=== PATIENT | male | born 1960 | race Caucasian/White ===

== ENCOUNTER 2017-04-23 16:30 | Observation (INO) | payer OTHER, SELFPAY ==
[2017-04-23 16:30] VITALS: BP 207/97; PULSE 85; RESP 16; TEMP 36.7; O2SAT 99; BMI 31.6
--- NOTE | 2017-04-23 16:37 | XR_ITS ---
XR chest portable HISTORY: Chest pain ITS.REASON: cp ORDERING PHYSICIAN: Jefry Lucas MD PATIENT AGE: 57 years COMPARISON: 08/10/2008 FINDINGS: The cardiomediastinal silhouette and pulmonary vascularity are within normal limits. The lungs are clear without infiltrates, suspicious nodules, or pleural effusions. No acute bony abnormalities. IMPRESSION: Negative chest, no acute finding
--- NOTE | 2017-04-23 16:39 | HMH.EDGENADL ---
ED Disposition Clinical Impression: Chest pain Disposition: Admitted As Inpatient Condition on Discharge: Good Referrals: Manfred Shetty MD [Primary Care Provider] - Time of Disposition: 18:54 - Critical Care Critical Care Time: No Attestation: On , the high probability of a clinically significant, sudden or life threatening deterioration of the following system(s) required my full and direct attention, intervention and personal management. The time I documented below is in addition to time spent performing reported procedures but includes the following listed in this critical care notation. Medical Decision Making - Medical Records MR Comment: [id number] patient is now chest pain-free plan is admission. Vital Signs: 04/23/17 16:30 04/23/17 17:00 04/23/17 17:30 Temperature 98.0 F Temperature Source Oral Pulse Rate [Right Brachial] 85 89 90 Respiratory Rate 16 16 21 Blood Pressure [Right Arm] 207/97 206/86 163/78 Blood Pressure Mean [Right Arm] 133 126 106 Blood Pressure Source [Right Arm] Automatic Cuff Automatic Cuff Automatic Cuff Blood Pressure Position [Right Arm] Supine Sitting Sitting 02 Sat by Pulse Oximetry 99 98 98 Oxygen Delivery Method Room Air Room Air 04/23/17 18:30 Temperature Temperature Source Pulse Rate [Right Brachial] 90 Respiratory Rate 21 Blood Pressure [Right Arm] 163/78 Blood Pressure Mean [Right Arm] 106 Blood Pressure Source [Right Arm] Automatic Cuff Blood Pressure Position [Right Arm] Sitting 02 Sat by Pulse Oximetry 98 Oxygen Delivery Method - Lab Data Lab Results 04/23/17 16:42: WBC 11.0 H, RBC 5.37, Hgb 16.0, Hct 46.9, MCV 87.2, MCH 29.8, MCHC 34.1, RDW 12.5, Plt Count 255, MPV 8.9, Neut % (Auto) 51.6, Lymph % (Auto) 40.7, [place] % (Auto) 6.5, Eos % (Auto) 0.5, Baso % (Auto) 0.6, Neut # (Auto) 5.7, Lymph # (Auto) 4.5, [place] # (Auto) 0.7, Eos # (Auto) 0.1, Baso # (Auto) 0.1 04/23/17 16:42: Sodium 136, Potassium 3.7, Chloride 99, Carbon Dioxide 27, Anion Gap 13.7, BUN 19 H, Creatinine 1.37 H, Estimated Creat Clear 94, Estimated GFR 54 L, Est GFR ( Amer) 65, Glucose 254 H, Calcium 9.2, Total Bilirubin 0.4, AST 19, ALT 47, Alkaline Phosphatase 86, Troponin I < 0.02, Total Protein 7.9, Albumin 4.0, Globulin 3.9 H, Albumin/Globulin Ratio 1.0 L, Lipase 495 H 04/23/17 16:42: B-Natriuretic Peptide 10 Result diagrams: 04/23/17 16:42 04/23/17 16:42 Orders (Tests/Meds): ED MEDICATIONS Generic Name Dose Route Start Last Admin Trade Name Freq PRN Reason Stop Dose Admin Nitroglycerin 0.4 mg 04/23/17 16:38 04/23/17 16:44 Nitrostat 0.4mg Sl Tablet SL 05/23/17 16:37 0.4 mcg [id number] PRN Administration Chest Pain Discontinued Medications Generic Name Dose Route Start Last Admin Trade Name Freq PRN Reason Stop Dose Admin Aspirin 324 mg 04/23/17 16:38 04/23/17 16:43 Aspirin 81mg Chewable Tablet PO 04/23/17 16:39 324 mg ONCE ONE Administration ORDERS Category Date Time Status ECG Request by /Adolfo Stat Y 04/23/17 16:38 Ordered - ECG Data Tracing #1 ER EKG read by myself shows normal sinus rhythm rate of 90, normal axis, QT prolongation, nonspecific EKG - Oj Inquiry Pt receiving controlled substance: No General Adult HPI - General Chief complaint: Chest Pain Stated complaint: chest pain Mode of Arrival: Ambulatory Limitations: No Limitations Description of Symptoms (Recalled from ER Triage Doc. by RN): Pt c/oepisode of chest pain that started last night and lasted approx. 15 mins and went away, had another episode that started this afternoon. pain has subsided - History of Present Illness HPI narrative: Patient states he had stents placed around 11 years ago he has never had any chest pain since that time he states last night he had onset of left-sided chest pressure no radiation that has been coming and going and he states is associated with some shortness of breath no nausea no sweating he states
--- NOTE | 2017-04-23 16:42 | ED_ITS ---
ED Disposition Clinical Impression: Chest pain Disposition: Admitted As Inpatient Condition on Discharge: Good Referrals: Manfred Shetty MD [Primary Care Provider] - Time of Disposition: 18:54 - Critical Care Critical Care Time: No Attestation: On , the high probability of a clinically significant, sudden or life threatening deterioration of the following system(s) required my full and direct attention, intervention and personal management. The time I documented below is in addition to time spent performing reported procedures but includes the following listed in this critical care notation. Medical Decision Making - Medical Records MR Comment: [id number] patient is now chest pain-free plan is admission. Vital Signs: 04/23/17 16:30 04/23/17 17:00 04/23/17 17:30 Temperature 98.0 F Temperature Source Oral Pulse Rate [Right Brachial] 85 89 90 Respiratory Rate 16 16 21 Blood Pressure [Right Arm] 207/97 206/86 163/78 Blood Pressure Mean [Right Arm] 133 126 106 Blood Pressure Source [Right Arm] Automatic Cuff Automatic Cuff Automatic Cuff Blood Pressure Position [Right Arm] Supine Sitting Sitting 02 Sat by Pulse Oximetry 99 98 98 Oxygen Delivery Method Room Air Room Air 04/23/17 18:30 Temperature Temperature Source Pulse Rate [Right Brachial] 90 Respiratory Rate 21 Blood Pressure [Right Arm] 163/78 Blood Pressure Mean [Right Arm] 106 Blood Pressure Source [Right Arm] Automatic Cuff Blood Pressure Position [Right Arm] Sitting 02 Sat by Pulse Oximetry 98 Oxygen Delivery Method - Lab Data Lab Results 04/23/17 16:42: WBC 11.0 H, RBC 5.37, Hgb 16.0, Hct 46.9, MCV 87.2, MCH 29.8, MCHC 34.1, RDW 12.5, Plt Count 255, MPV 8.9, Neut % (Auto) 51.6, Lymph % (Auto) 40.7, [place] % (Auto) 6.5, Eos % (Auto) 0.5, Baso % (Auto) 0.6, Neut # (Auto) 5.7 , Lymph # (Auto) 4.5, [place] # (Auto) 0.7, Eos # (Auto) 0.1, Baso # (Auto) 0.1 04/23/17 16:42: Sodium 136, Potassium 3.7, Chloride 99, Carbon Dioxide 27, Anion Gap 13.7, BUN 19 H, Creatinine 1.37 H, Estimated Creat Clear 94, Estimated GFR 54 L, Est GFR ( Amer) 65, Glucose 254 H, Calcium 9.2, Total Bilirubin 0.4, AST 19, ALT 47, Alkaline Phosphatase 86, Troponin I < 0.02 , Total Protein 7.9, Albumin 4.0, Globulin 3.9 H, Albumin/Globulin Ratio 1.0 L, Lipase 495 H 04/23/17 16:42: B-Natriuretic Peptide 10 Result diagrams: 04/23/17 16:42 04/23/17 16:42 Orders (Tests/Meds): ED MEDICATIONS Generic Name Dose Route Start Last Admin Trade Name Freq PRN Reason Stop Dose Admin Nitroglycerin 0.4 mg 04/23/17 16:38 04/23/17 16:44 Nitrostat 0.4mg Sl Tablet SL 05/23/17 16:37 0.4 mcg Q5MINP PRN Administration Chest Pain Discontinued Medications Generic Name Dose Route Start Last Admin Trade Name Freq PRN Reason Stop Dose Admin Aspirin 324 mg 04/23/17 16:38 04/23/17 16:43 Aspirin 81mg Chewable Tablet PO 04/23/17 16:39 324 mg ONCE ONE Administration ORDERS Category Date Time Status ECG Request by /Adolfo Stat Y 04/23/17 16:38 Ordered - ECG Data Tracing #1 ER EKG read by myself shows normal sinus rhythm rate of 90, normal axis, QT prolongation, nonspecific EKG - Oj Inquiry Pt receivi
[2017-04-23 17:00] VITALS: BP 206/86; PULSE 89; RESP 16; O2SAT 98
[2017-04-23 17:06] LABS: Alanine Aminotransferase 47 U/L (12-78); Alkaline Phosphatase 86 U/L (46-116); Anion Gap 13.7 mEq/L (5-15); Bilirubin,Total 0.4 mg/dL (0.2-1.0); Blood Urea Nitrogen 19 mg/dL (7-18); Calcium 9.2 mg/dL (8.5-10.1); Carbon Dioxide 27 mmol/L (21.0-32.0); Chloride 99 mmol/L (98-107); Creatinine Clearance Estimated 94 mL/min (0-300); Creatinine,Serum 1.37 mg/dL (0.70-1.30); Estimated Glomerular Filt Rate 54 ml/min (>60); GFR (African American) 65 ML/MIN (>60); Globulin 3.9 gm/dl (1.3-3.2); Glucose 254 mg/dL (74-106); Lipase 495 u/L (73-393); Sodium 136 mmol/L (136-145); Total Protein,Serum 7.9 gm/dL (6.4-8.2); Troponin I < 0.02 ng/ml (0.00-0.06)
[2017-04-23 17:08] LABS: Aspartate Amino Transferase 19 U/L (15-37); Potassium 3.7 mmoL/L (3.5-5.1)
[2017-04-23 17:24] LABS: Basophils # 0.1 K/mm3 (0-0.2); Basophils % 0.6 % (0.1-2.0); Eosinophils # 0.1 K/mm3 (0.0-0.4); Eosinophils % 0.5 % (0.1-12.0); Hematocrit 46.9 % (42.0-52.0); Lymphocytes # 4.5 K/mm3 (0.7-4.5); Lymphocytes % 40.7 K/mm3 (10-50); Mean Corpuscular HGB Conc 34.1 g/dL (31.8-35.4); Mean Corpuscular Hemoglobin 29.8 pg (27.0-31.2); Mean Corpuscular Volume 87.2 fl (80-94); Mean Platelet Volume 8.9 fl (7.4-10.4); Monocytes # 0.7 K/mm3 (0.1-1.0); Monocytes % 6.5 % (1.7-9.3); Neutrophils # 5.7 K/mm3 (1.8-7.8); Neutrophils % 51.6 % (37.0-80.0); Platelet Count 255 K/mm3 (142-424); Red Blood Count 5.37 M/mm3 (4.60-6.20); Red Cell Distribution Width 12.5 % (11.5-17.5)
[2017-04-23 17:30] VITALS: BP 163/78; PULSE 90; RESP 21; O2SAT 98
[2017-04-23 18:30] VITALS: BP 163/78; PULSE 90; RESP 21; O2SAT 98
[2017-04-23 19:30] VITALS: BP 161/84; PULSE 83; RESP 16; O2SAT 97
--- NOTE | 2017-04-23 19:31 | PC.NURSE ---
BLOOD DRAWN FOR REPEAT TROPONIN
[2017-04-23 19:53] LABS: Troponin I 0.02 ng/ml (0.00-0.06)
[2017-04-23 20:00] VITALS: O2SAT 97; BMI 33.0
[2017-04-23 22:57] LABS: Troponin I 0.08 ng/ml (0.00-0.06)
[2017-04-24] VITALS (21 sets, daily range): BP systolic 120–182; BP diastolic 58–101; PULSE 68–86; RESP 16–20; TEMP 36.6–36.9; O2SAT 95–98
--- NOTE | 2017-04-24 03:15 | PC.NURSE ---
PATIENT ADMITTED THROUGH ED FOR CHEST PAIN, NO FURTHER C/O CHEST PAIN THIS SHIFT. DURING ADMISSION PATIENT STATED HE IS ALLERGIC TO ATENOLOL INSTEAD OF PROPRANOLOL; IT WAS CORRECTED IN HIS CHART. PATIENT MADE IT CLEAR THAT HE DID NOT WANT TO STAY THE NIGHT AND STATED HE WOULD BE GOING HOME IN THE MORNING.. IV PLACEMENT IN LAC IS PATENT BUT PATIENT CONTINUED TO BEND ELBOW WHILE SLEEPING MAKING THE ALARM GO OFF. EXPLAINED TO PATIENT THAT IV FLUIDS WERE ORDERED AND HE STATED HE DID NOT WANT THAT ALARM KEEPING HIM UP ALL NIGHT AND THAT HE WANTED IT UNHOOKED . PATIENT HAS BEEN SLEEPING SO FAR THIS SHIFT WITH NO FURTHER C/O PAIN OR DISCOMFORT. VSS. NO ACUTE CHANGES. CALL LIGHT WITHIN REACH. WILL CONTINUE TO MONITOR.
[2017-04-24 05:29] LABS: Basophils # 0.1 K/mm3 (0-0.2); Basophils % 0.7 % (0.1-2.0); Eosinophils # 0.1 K/mm3 (0.0-0.4); Eosinophils % 0.9 % (0.1-12.0); Hematocrit 45.2 % (42.0-52.0); Lymphocytes # 3.2 K/mm3 (0.7-4.5); Lymphocytes % 36.9 K/mm3 (10-50); Mean Corpuscular HGB Conc 33.2 g/dL (31.8-35.4); Mean Corpuscular Hemoglobin 29.1 pg (27.0-31.2); Mean Corpuscular Volume 87.4 fl (80-94); Mean Platelet Volume 8.7 fl (7.4-10.4); Monocytes # 0.6 K/mm3 (0.1-1.0); Monocytes % 7.2 % (1.7-9.3); Neutrophils # 4.6 K/mm3 (1.8-7.8); Neutrophils % 54.3 % (37.0-80.0); Platelet Count 208 K/mm3 (142-424); Red Blood Count 5.17 M/mm3 (4.60-6.20); Red Cell Distribution Width 12.5 % (11.5-17.5); White Blood Count 8.5 K/mm3 (4.8-10.8)
[2017-04-24 05:37] LABS: Anion Gap 10.2 mEq/L (5-15); Blood Urea Nitrogen 18 mg/dL (7-18); Carbon Dioxide 28 mmol/L (21.0-32.0); Chloride 104 mmol/L (98-107); Creatinine Clearance Estimated 120 mL/min (0-300); Creatinine,Serum 1.12 mg/dL (0.70-1.30); Estimated Glomerular Filt Rate 68 ml/min (>60); GFR (African American) 82 ML/MIN (>60); Potassium 4.2 mmoL/L (3.5-5.1); Sodium 138 mmol/L (136-145)
[2017-04-24 05:44] LABS: Glucose 201 mg/dL (74-106)
[2017-04-24 08:41] LABS: Troponin I 0.26 ng/ml (0.00-0.06)
--- NOTE | 2017-04-24 09:16 | HMH.HP ---
*Admission Date: 04/23/17 *Chief complaint: Chest Pain *History of present illness: 57-year-old white male, diabetic, with history of coronary disease with stents placed about 11 years ago. Since that time he has been lost to cardiology follow-up and has been on diabetic medications but no statin or beta blockade or JOSY inhibitor. He came to the emergency department yesterday with chief complaints of heaviness in his chest, some dyspnea with exertion and was admitted overnight for observation. This morning he has no chest pain and feels good. No palpitations or worsening edema. [facility] History I have reviewed the patient's past medical history: Yes Medical History: Reports:: Atherosclerotic Heart Disease, Diabetes Mellitus Type 1, Diabetes Mellitus Type 2 Denies:: Cancer, MRSA Other Surgeries: Yes: Coronary Stent, EGD (check for ulcer) Amputation: No Fractures: No - *Social History Educational Level: Completed High School Smoking Status: Former smoker Tobacco Type: cigarettes Alcohol Intake: never Occupational Status: employed - Psychiatric History Expresses thoughts of harming self/others: None Suicide Plan Description: No Plan *Family Hx:: Heart Attack, Hyperlipidemia, Hypertension Review of Systems - Review of Systems Review of systems:: unable to obtain, other, pertinent systems reviewed and negative unless documented below Meds Home Medications Medication Instructions Recorded Confirmed Type Dulaglutide [Trulicity] 0.75 unit SQ WEEKLY 04/23/17 04/23/17 History Sertraline HCl [Zoloft] 50 mg PO BID 04/23/17 04/23/17 History Allergies Allergy/AdvReac Type Severity Reaction Status Date / Time atenolol Allergy Intermediate Rash Verified 04/23/17 20:30 Exam Vital signs and Labs for Last 24 Hours: Temp Pulse Resp BP Pulse Ox 98.4 F 69 18 142/70 98 04/24/17 07:58 04/24/17 07:58 04/24/17 07:58 04/24/17 07:58 04/24/17 07:58 Laboratory Results - last 24 hr 04/23/17 22:30: Troponin I 0.08 H 04/24/17 05:15: WBC 8.5, RBC 5.17, Hgb 15.0, Hct 45.2, MCV 87.4, MCH 29.1, MCHC 33.2, RDW 12.5, Plt Count 208, MPV 8.7, Neut % (Auto) 54.3, Lymph % (Auto) 36.9, [place] % (Auto) 7.2, Eos % (Auto) 0.9, Baso % (Auto) 0.7, Neut # (Auto) 4.6, Lymph # (Auto) 3.2, [place] # (Auto) 0.6, Eos # (Auto) 0.1, Baso # (Auto) 0.1 04/24/17 05:15: Sodium 138, Potassium 4.2, Chloride 104, Carbon Dioxide 28, Anion Gap 10.2, BUN 18, Creatinine 1.12, Estimated Creat Clear 120, Estimated GFR 68, Est GFR ( Amer) 82 D, Glucose 201 H D 04/24/17 05:15: Troponin I 0.26 H I & O for Last 24 hours: Intake & Output 04/21/17 04/22/17 04/23/17 04/24/17 11:59 11:59 11:59 11:59 Intake Total Balance Weight 250 lb 8 oz Narrative: Patient is pleasant and talkative, lungs are clear, heart rate regular. Abdomen soft, no edema. Neurologically intact. No JVD. Good distal pulses. H&P: Result - Labs Labs: Short CBC 04/24/17 Range/Units 05:15 WBC 8.5 (4.8-10.8) K/mm3 Hgb 15.0 (14.1-18.0) g/dL Hct 45.2 (42.0-52.0) % Plt Count 208 (142-424) K/mm3 BMP 04/24/17 05:15 Sodium 138 Potassium 4.2 Chloride 104 Carbon Dioxide 28 BUN 18 Creatinine 1.12 Glucose 201 H D Cardiac Enzymes 04/23/17 04/24/17 Range/Units 22:30 05:15 Troponin I 0.08 H 0.26 H (0.00-0.06) ng/ml Assessment and Plan (1) Non-STEMI (non-ST elevated myocardial infarction) Current visit: Yes Status: Acute Category: Medical Code(s): I21.4 - Non-ST elevation (NSTEMI) myocardial infarction (2) Diabetes mellitus type 2, noninsulin dependent Current visit: Yes Status: Acute Category: Medical Code(s): E11.9 - Type 2 diabetes mellitus without complications - Assessment and plan all Dx Assessment and Plan for all problems:: Patient is clearly ruled in this morning for non-STEMI. Cardiology consultation with Dr. Giron for catheterization.
--- NOTE | 2017-04-24 09:19 | P.HP_ITS ---
*Admission Date: 04/23/17 *Chief complaint: Chest Pain *History of present illness: 57-year-old white male, diabetic, with history of coronary disease with stents placed about 11 years ago. Since that time he has been lost to cardiology follow-up and has been on diabetic medications but no statin or beta blockade or JOSY inhibitor. He came to the emergency department yesterday with chief complaints of heaviness in his chest, some dyspnea with exertion and was admitted overnight for observation. This morning he has no chest pain and feels good. No palpitations or worsening edema. [facility] History I have reviewed the patient's past medical history: Yes Medical History: Reports:: Atherosclerotic Heart Disease, Diabetes Mellitus Type 1, Diabetes Mellitus Type 2 Denies:: Cancer, MRSA Other Surgeries: Yes: Coronary Stent, EGD (check for ulcer) Amputation: No Fractures: No - *Social History Educational Level: Completed High School Smoking Status: Former smoker Tobacco Type: cigarettes Alcohol Intake: never Occupational Status: employed - Psychiatric History Expresses thoughts of harming self/others: None Suicide Plan Description: No Plan *Family Hx:: Heart Attack, Hyperlipidemia, Hypertension Review of Systems - Review of Systems Review of systems:: unable to obtain, other, pertinent systems reviewed and negative unless documented below Meds Home Medications Medication Instructions Recorded Confirmed Type Dulaglutide [Trulicity] 0.75 unit SQ WEEKLY 04/23/17 04/23/17 History Sertraline HCl [Zoloft] 50 mg PO BID 04/23/17 04/23/17 History Allergies Allergy/AdvReac Type Severity Reaction Status Date / Time atenolol Allergy Intermediate Rash Verified 04/23/17 20:30 Exam Vital signs and Labs for Last 24 Hours: Temp Pulse Resp BP Pulse Ox 98.4 F 69 18 142/70 98 04/24/17 07:58 04/24/17 07:58 04/24/17 07:58 04/24/17 07:58 04/24/17 07:58 Laboratory Results - last 24 hr 04/23/17 22:30: Troponin I 0.08 H 04/24/17 05:15: WBC 8.5, RBC 5.17, Hgb 15.0, Hct 45.2, MCV 87.4, MCH 29.1, MCHC 33.2, RDW 12.5, Plt Count 208, MPV 8.7, Neut % (Auto) 54.3, Lymph % (Auto) 36.9 , [place] % (Auto) 7.2, Eos % (Auto) 0.9, Baso % (Auto) 0.7, Neut # (Auto) 4.6, Lymph # (Auto) 3.2, [place] # (Auto) 0.6, Eos # (Auto) 0.1, Baso # (Auto) 0.1 04/24/17 05:15: Sodium 138, Potassium 4.2, Chloride 104, Carbon Dioxide 28, Anion Gap 10.2, BUN 18, Creatinine 1.12, Estimated Creat Clear 120, Estimated GFR 68, Est GFR ( Amer) 82 D, Glucose 201 H D 04/24/17 05:15: Troponin I 0.26 H I & O for Last 24 hours: Intake & Output 04/21/17 04/22/17 04/23/17 04/24/17 11:59 11:59 11:59 11:59 Intake Total Balance Weight 250 lb 8 oz Narrative: Patient is pleasant and talkative, lungs are clear, heart rate regular. Abdomen soft, no edema. Neurologically intact. No JVD. Good distal pulses. H&P: Result - Labs Labs: Short CBC 04/24/17 Range/Units 05:15 WBC 8.5 (4.8-10.8) K/mm3 Hgb 15.0 (14.1-18.0) g/dL Hct 45.2 (42.0-52.0) % Plt Count 208 (142-424) K/mm3 BMP 04/24/17 05:15 Sodium 138 Potassium 4.2 Chloride 104 Carbon Dioxide 28 BUN 18 Creatinine 1.12 Glucose
--- NOTE | 2017-04-24 10:06 | IR_ITS ---
CARDIAC CATHETERIZATION DATE OF CATHETERIZATION:04/24/2017 12:31 PM PROCEDURES: 1. Left heart catheterization 2. Left ventriculogram 3. Selective coronary angiogram 4. Drug-eluting stent deployment to the mid LAD INDICATION FOR TEST: 1. Acute non-ST elevation myocardial infarction 2. Coronary artery disease Informed consent was obtained prior to the procedure. COMPLICATIONS: None ESTIMATED BLOOD LOSS: Less than 10 ml. TECHNIQUE: One percent lidocaine used to anesthetize the right anterior aspect of the wrist. The right radial artery was accessed via the Seldinger technique. A 6 [place] sheath was placed in the right radial artery. 2.5 mg of verapamil, 800 mcg of nitroglycerin and 5000 U Heparin were given through the arterial sheath. The trap catheter was also used to perform left heart catheterization left ventriculogram and selective coronary angiogram. At the end of the diagnostic angiogram and additional 8000 units of heparin was administered intravenously producing an ACT of 383 seconds. Several catheters were required but eventually and JL 0.75 guide catheter was used intubate the left main artery. A choice PT wire was placed into the distal LAD and a 2.5 x 22 mm resolute [place] stent was deployed at 22 scout reducing the stenosis critical 99% stenosis to 60%. A 2.75 x 6 mm noncompliant balloon was taken at 24 scout to reduce the stenosis. An additional 3 mm balloon and then 3.25 mm balloon and then ultimately 2 different 3.5 mm noncompliant balloons were required to eventually reduce the stenosis to 0%. A 3.5 x 6 mm noncompliant balloon finding the reduced the stenosis to 0% once hitting 24 scout of pressure TOVA II flow was present at the beginning of the procedure and TOVA-3 flow at the end of the procedure. After achieving excellent angiographic results the closing ACT was 280 seconds. Patient received Brilinta 180 mg on the table along with aspirin. At the end of the procedure the sheath was removed good hemostasis was achieved using TR banding patient was transferred to the postop holding area in stable condition ANGIOGRAPHIC RESULTS: 1. The left main artery normal 2. The left anterior descending artery has proximal 10% stenoses followed by a stent in the mid portion of the LAD which has critical 99% in-stent restenosis. The remaining LAD has mild luminal irregularities. The first diagonal artery is a large vessel and has a stent in the proximal segment which is widely patent with 20-30% concentric in-stent restenosis 3. The circumflex artery is a nondominant vessel and has proximal 20-30% stenoses and distal 20% stenoses in the obtuse marginal arteries 4. The right coronary artery is a dominant vessel and has a stent proximally with mild in-stent restenosis. The mid right coronary artery has 30% stenoses while the distal vessel also has 30% stenoses 5. The GUILLEN ventriculogram reveals normal ejection fraction 65% 6. The left ventricular end-diastolic pressure 10 mmHg IMPRESSION: 1. Critical in-stent restenosis in the mid LAD producing slow TOVA II flow 2. Successful stenting and ballooning of a complex critical stenosis eventually being reduced to 0% with multiple high pressure balloons resulting and TOVA-3 flow 3. Normal ejection fraction 4. Normal left ventricular end-diastolic pressure PLAN: 1. Brilinta 90 mg twice a day combined with aspirin 81 mg daily for one year 2. LDL less than 55 3. Cardiac rehabilitation 4. Avoidance of tobacco products 5. Aggressive control of hypertension 6. Aggressive control of diabetes
--- NOTE | 2017-04-24 10:59 | SUR.PREOP ---
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
[2017-04-24 13:42] LABS: CATHL Activated Clotting Time 280 SEC (74-125)
[2017-04-24 13:42] LABS: CATHL Activated Clotting Time 383 SEC (74-125)
--- NOTE | 2017-04-24 16:25 | HMH.DCSUM ---
General - General Admission date: 04/23/17 Discharge date: 04/24/17 HPI HPI: 57-year-old white male, diabetic, with history of coronary disease with stents placed about 11 years ago. Since that time he has been lost to cardiology follow-up and has been on diabetic medications but no statin or beta blockade or JOSY inhibitor. He came to the emergency department yesterday with chief complaints of heaviness in his chest, some dyspnea with exertion and was admitted overnight for observation. This morning he has no chest pain and feels good. No palpitations or worsening edema. Objective Vital signs: Temp Pulse Resp BP Pulse Ox 98.4 F 85 18 182/101 98 04/24/17 07:58 04/24/17 15:30 04/24/17 15:30 04/24/17 15:30 04/24/17 15:30 no acute distress - *Routine HEENT Exam Eye: Present: EOMI, PERRL - *Routine Neck Exam Absent: JVD - *Routine Respiratory Exam Present: CTA bilaterally - *Routine Cardiovascular Exam Present: RRR, Normal S1, Normal S2. Absent: murmur - *Routine Abdominal Exam Present: soft - *Routine Neurological Exam Present: alert, oriented X3, CN II-XII intact Hospital Course Hospital Course: Patient was admitted to hospital, serial cardiac enzymes showed elevation and I ordered another repeat this morning which revealed clear elevation into the acute coronary syndrome/non-STEMI range. Cardiology was consulted. Patient was subjected to left heart cath which revealed a 90% LAD lesion that was certainly critical. Stenting was deployed with excellent results radiographically. The patient feels good, he is completed his post stent protocol and he will be discharged tonight with Brilinta, JOSY inhibitor, calcium channel blockade and atorvastatin. Close follow-up in my office in 2 days. Results Labs on day of discharge: Labs from last 24 hours 04/24/17 04/24/17 04/24/17 12:02 11:26 05:15 WBC RBC Hgb Hct MCV MCH MCHC RDW Plt Count MPV Neut % (Auto) Lymph % (Auto) [place] % (Auto) Eos % (Auto) Baso % (Auto) Neut # (Auto) Lymph # (Auto) [place] # (Auto) Eos # (Auto) Baso # (Auto) Activated Clotting Time 280 H* D 383 H* Sodium Potassium Chloride Carbon Dioxide Anion Gap BUN Creatinine Estimated Creat Clear Estimated GFR Est GFR ( Amer) Glucose Troponin I 0.26 H 04/24/17 04/24/17 04/23/17 05:15 05:15 22:30 WBC 8.5 RBC 5.17 Hgb 15.0 Hct 45.2 MCV 87.4 MCH 29.1 MCHC 33.2 RDW 12.5 Plt Count 208 MPV 8.7 Neut % (Auto) 54.3 Lymph % (Auto) 36.9 [place] % (Auto) 7.2 Eos % (Auto) 0.9 Baso % (Auto) 0.7 Neut # (Auto) 4.6 Lymph # (Auto) 3.2 [place] # (Auto) 0.6 Eos # (Auto) 0.1 Baso # (Auto) 0.1 Activated Clotting Time Sodium 138 Potassium 4.2 Chloride 104 Carbon Dioxide 28 Anion Gap 10.2 BUN 18 Creatinine 1.12 Estimated Creat Clear 120 Estimated GFR 68 Est GFR ( Amer) 82 D Glucose 201 H D Troponin I 0.08 H DS: Diagnosis - Discharge Diagnosis (1) Non-STEMI (non-ST elevated myocardial infarction) Status: Acute (2) Diabetes mellitus type 2, noninsulin dependent Status: Acute Meds Home Medications Medication Instructions Recorded Confirmed Type Dulaglutide [Trulicity] 0.75 unit SQ WEEKLY 04/23/17 04/23/17 History Sertraline HCl [Zoloft] 50 mg PO BID 04/23/17 04/23/17 History Allergies Allergy/AdvReac Type Severity Reaction Status Date / Time atenolol Allergy Intermediate Rash Verified 04/23/17 20:30 Discharge Plan - Patient Discharge Instructions ACTIVITY: No heavy lifting DIET: continue same diet - Follow up Plan Follow up with: Tammy Brunson APRN [Nurse Practitioner] - 04/26/17 9:00 am Home Medications: Home Medications Medication Instructions Recorded Confirmed Type Dulaglutide
--- NOTE | 2017-04-24 16:28 | P.DS_ITS ---
General - General Admission date: 04/23/17 Discharge date: 04/24/17 HPI HPI: 57-year-old white male, diabetic, with history of coronary disease with stents placed about 11 years ago. Since that time he has been lost to cardiology follow-up and has been on diabetic medications but no statin or beta blockade or JOSY inhibitor. He came to the emergency department yesterday with chief complaints of heaviness in his chest, some dyspnea with exertion and was admitted overnight for observation. This morning he has no chest pain and feels good. No palpitations or worsening edema. Objective Vital signs: Temp Pulse Resp BP Pulse Ox 98.4 F 85 18 182/101 98 04/24/17 07:58 04/24/17 15:30 04/24/17 15:30 04/24/17 15:30 04/24/17 15:30 no acute distress - *Routine HEENT Exam Eye: Present: EOMI, PERRL - *Routine Neck Exam Absent: JVD - *Routine Respiratory Exam Present: CTA bilaterally - *Routine Cardiovascular Exam Present: RRR, Normal S1, Normal S2. Absent: murmur - *Routine Abdominal Exam Present: soft - *Routine Neurological Exam Present: alert, oriented X3, CN II-XII intact Hospital Course Hospital Course: Patient was admitted to hospital, serial cardiac enzymes showed elevation and I ordered another repeat this morning which revealed clear elevation into the acute coronary syndrome/non-STEMI range. Cardiology was consulted. Patient was subjected to left heart cath which revealed a 90% LAD lesion that was certainly critical. Stenting was deployed with excellent results radiographically. The patient feels good, he is completed his post stent protocol and he will be discharged tonight with Brilinta, JOSY inhibitor, calcium channel blockade and atorvastatin. Close follow-up in my office in 2 days. Results Labs on day of discharge: Labs from last 24 hours 04/24/17 04/24/17 04/24/17 12:02 11:26 05:15 WBC RBC Hgb Hct MCV MCH MCHC RDW Plt Count MPV Neut % (Auto) Lymph % (Auto) Valley % (Auto) Eos % (Auto) Baso % (Auto) Neut # (Auto) Lymph # (Auto) Valley # (Auto) Eos # (Auto) Baso # (Auto) Activated Clotting Time 280 H* D 383 H* Sodium Potassium Chloride Carbon Dioxide Anion Gap BUN Creatinine Estimated Creat Clear Estimated GFR Est GFR ( Amer) Glucose Troponin I 0.26 H 04/24/17 04/24/17 04/23/17 05:15 05:15 22:30 WBC 8.5 RBC 5.17 Hgb 15.0 Hct 45.2 MCV 87.4 MCH 29.1 MCHC 33.2 RDW 12.5 Plt Count 208 MPV 8.7 Neut % (Auto) 54.3 Lymph % (Auto) 36.9 Valley % (Auto) 7.2 Eos % (Auto) 0.9 Baso % (Auto) 0.7 Neut # (Auto) 4.6 Lymph # (Auto) 3.2 Valley # (Auto) 0.6 Eos # (Auto) 0.1 Baso # (Auto) 0.1 Activated Clotting Time Sodium 138 Potassium 4.2 Chloride 104 Carbon Dioxide 28 Anion Gap
--- NOTE | 2017-04-24 17:48 | PC.NURSE ---
PATIENT RETURNED FROM [facility]OR[facility]NA[facility] AT 1400 1430 REMOVED 2 ML AIR FROM TRACELET WITH 10 REMAINING 1500 REMOVED 2 ML AIR FROM TRACELET WITH 8 ML REMAINING 1530 REMOVED 2 ML AIR FROM TRACELET WITH 6 REMAINING 1600 REMOVED 2 ML AIR FROM TRACELET WITH 4 REMAINING 1630 REMOVED 2 ML AIR FROM TRACELET WITH 2 REMAINING 1715 REMOVED 2 ML AIR FROM TRACELET WITH 0 REMAINING 1745 REMOVED TRACELET AND REPLACED WITH 2X2 AND TEGADERM
--- NOTE | 2017-04-24 18:34 | PC.NURSE ---
Discharge instructions given to pt and education on post cath care. Right wrist site has 2x2 in place. no swelling or bleeding noted at site.
== END 2017-04-24 18:30 | disposition home or self-care (01) ==
LOC: ER 18:55 → 2ND 04-24 07:11
PROVIDERS: Internal Medicine; Admitting Provider Emergency Medicine; Emergency Provider Emergency Medicine; PCP Internal Medicine Adolescent Medicine; Visit Provider Internal Medicine Adolescent Medicine
DX: I25.10 Atherosclerotic heart disease of native coronary artery without angina pectoris (principal); Z95.5 Presence of coronary angioplasty implant and graft; E11.9 Type 2 diabetes mellitus without complications; I21.4 Non-ST elevation (NSTEMI) myocardial infarction
CPT/HCPCS: 36415; 71045; 80048; 80053; 83690; 83880; 84484; 85025; 85347; 92928; 93005; 93041; 93458; 99152; 99153; 99284; C1725; C1769; C1876; C9600; G0378; J1644; Q9967

== ENCOUNTER → 2017-07-21 07:30 | Outpatient (CLI) | payer SELFPAY ==
[2017-07-21 11:16] LABS: Alanine Aminotransferase 49 U/L (12-78); Albumin/Globulin Ratio 1.1 (1.1-1.8); Alkaline Phosphatase 88 U/L (46-116); Anion Gap 17.5 mEq/L (5-15); Aspartate Amino Transferase 21 U/L (15-37); Bilirubin,Total 0.5 mg/dL (0.2-1.0); Blood Urea Nitrogen 23 mg/dL (7-18); Calcium 9.4 mg/dL (8.5-10.1); Carbon Dioxide 23 mmol/L (21.0-32.0); Chloride 102 mmol/L (98-107); Chol/HDL Ratio 3.1 (1-3.5); Cholesterol 121 mg/dL (140-200); Creatinine,Serum 1.01 mg/dL (0.70-1.30); Estimated Glomerular Filt Rate 77 ml/min (>60); GFR (African American) 93 ML/MIN (>60); Globulin 3.7 gm/dl (1.3-3.2); Glucose 266 mg/dL (74-106); HDL Cholesterol 39 mg/dL (27-67); LDL Cholesterol 58 mg/dL (0-130); Potassium 4.5 mmoL/L (3.5-5.1); Sodium 138 mmol/L (136-145); Total Protein,Serum 7.7 gm/dL (6.4-8.2); Triglycerides 119 mg/dL (30-200); VLDL Cholesterol 24 mg/dL (0-40)
[2017-07-21 15:38] LABS: Hemoglobin A1C 9.2 % (0.0-7.0)
[2017-07-23 12:54] LABS: Microalbumin, Urine 15.4 ug/mL (Not Estab.)
== END ==
PROVIDERS: Visit Provider Nurse Practitioner Family
DX: E78.2 Mixed hyperlipidemia (principal); E11.9 Type 2 diabetes mellitus without complications; I10 Essential (primary) hypertension
CPT/HCPCS: 36415; 80053; 80061; 82043; 83036

== ENCOUNTER → 2018-11-26 10:06 | Outpatient (CLI) | payer OTHER, SELFPAY ==
[2018-11-26 10:41] LABS: Hemoglobin A1C 9.3 % (0.0-7.0)
[2018-11-26 12:39] LABS: Alanine Aminotransferase 43 U/L (12-78); Albumin Level 4.2 gm/dL (3.4-5.0); Albumin/Globulin Ratio 1.2 (1.1-1.8); Alkaline Phosphatase 119 U/L (46-116); Aspartate Amino Transferase 19 U/L (15-37); Bilirubin,Total 0.6 mg/dL (0.2-1.0); Blood Urea Nitrogen 22 mg/dL (7-18); Calcium 9.4 mg/dL (8.5-10.1); Carbon Dioxide 26 mmol/L (21.0-32.0); Chol/HDL Ratio 3.1 (1-3.5); Cholesterol 114 mg/dL (140-200); Creatinine,Serum 1.09 mg/dL (0.70-1.30); Estimated Glomerular Filt Rate 70 ml/min (>60); GFR (African American) 85 ML/MIN (>60); Globulin 3.6 gm/dl (1.3-3.2); Glucose 326 mg/dL (74-106); HDL Cholesterol 37 mg/dL (27-67); LDL Cholesterol 49 mg/dL (0-130); Total Protein,Serum 7.8 gm/dL (6.4-8.2); Triglycerides 138 mg/dL (30-200); VLDL Cholesterol 28 mg/dL (0-40)
[2018-11-26 12:56] LABS: Anion Gap 15.5 mEq/L (5-15); Chloride 99 mmol/L (98-107); Potassium 4.5 mmoL/L (3.5-5.1); Sodium 136 mmol/L (136-145)
[2018-11-30 05:08] LABS: Creatinine, Urine 34.2 mg/dL (Not Estab.); Microalbumin, Urine 15.3 ug/mL (Not Estab.)
== END ==
PROVIDERS: Visit Provider Nurse Practitioner Family
DX: E11.65 Type 2 diabetes mellitus with hyperglycemia (principal); E78.2 Mixed hyperlipidemia; I10 Essential (primary) hypertension; Z79.84 Long term (current) use of oral hypoglycemic drugs
CPT/HCPCS: 36415; 80053; 80061; 82043; 82570; 83036

== ENCOUNTER → 2019-01-03 06:54 | Outpatient (CLI) | payer OTHER, SELFPAY ==
--- NOTE | 2019-01-03 | CA_ITS ---
APPROVED REPORT Exam: Exercise Treadmill Technologist: Janice Lorenzana Ht: 6 ft 0 in Wt: 234 lbs BSA: 2.28 m2 HR: 60 bpm BP: 143/72 mmHg Indications: Shortness of Breath Medical History Medications: Amlodipine,,,,, Aspirin,,,,, Metformin,,,,, Atorvastatin,,,,, Carvedilol,,,,, Farxiga,,,,, BRILINTA,,,,, Sertraline,,,,, Stress Test Details Test: Ismael HR Resting HR: 65 bpm Max Heart Rate (APMHR): 164 bpm Max HR Achieved: 142 bpm Target HR (85% APMHR): 139 bpm % of APMHR: 86 Recovery HR: 81 bpm BP Resting BP: 143.0/72.0 mmHg Max BP: 180.0/68.0 mmHg Recovery BP: 137.0/65.0 mmHg ECG Clinical Exercise duration: 08:35 min Highest Stage Achieved: Exercise capacity: 10.1 METs Stress ECG Conclusion Resting ECG: Normal sinus rhythm, NS ST abnormalities inferiorly. Patient exercised 8:35 on Ismael Protocol. Test stopped due to shortness of air, leg fatigue. Symptoms: No chest pain Arrhythmias/Ectopy: Rare PVC ST-T Changes: 2mm downsloping ST depression inferiorly and 1.5mm horizontal ST depression laterally. Conclusion: EKG changes positive for ischemia. Myoview images reported separately. Test Summary REST . . . . . . . Sitting REST . . . . . . . Standing REST 11:02 0.0 0.0 65 . 143/ 72 . . Stage 1 01:00 10.0 1.7 83 . . . . Stage 1 02:00 10.0 1.7 89 . . . . Stage 1 03:00 10.0 1.7 92 . 152/ 70 . . Stage 2 01:00 12.0 2.5 102 . . . . Stage 2 02:00 12.0 2.5 102 . . . . Stage 2 03:00 12.0 2.5 112 . 180/ 68 . . Stage 3 01:00 14.0 3.4 130 . . . . Stage 3 . . . . . . . Myoview Injected Stage 3 02:00 14.0 3.4 138 . . . . Stage 3 02:35 14.0 3.4 142 . . . Stop exercise at 08:35 RECOVERY 01:00 0.0 0.0 118 . 174/ 60 . . RECOVERY 02:00 0.0 0.0 102 . 174/ 60 . . RECOVERY 03:00 0.0 0.0 88 . 174/ 60 . . RECOVERY 04:00 0.0 0.0 90 . 168/ 63 . . RECOVERY 05:00 0.0 0.0 84 . 152/ 70 . . RECOVERY 06:00 0.0 0.0 83 . 152/ 70 . . RECOVERY 07:00 0.0 0.0 80 . 137/ 65 . . RECOVERY 07:19 0.0 0.0 81 . 137/ 65 . . Electronically signed by : Miguel Lepe, 01/03/2019 20:37:14
--- NOTE | 2019-01-03 06:57 | NM_ITS ---
APPROVED REPORT Exam: Nuclear Stress Test Indication: chest pain Patient Location: Outpatient Stress Tech: Janice Lorenzana [place] Tech:Wendie Lopez SANJEEV RT(R)(N) Ht: 6 ft 0 in Wt: 234 lbs HR: 60 bpm BP: 143/72 mmHg BSA: 2.28 m2 History: chest pain Procedure: Patient exercised on Ismael protocol 8:35 minutes and sec, resting heart rate 60 bpm, resting blood pressure 143/72 mmHg, with exercise maximum heart rate achived was 142 bpm which is 87 % of the maximum predicted heart rate and blood pressure was 180/68 mmHg. Patient denied any complaint of chest pain. Patient has Good exercise capacity, achieved 10.1 METs of workload on treadmill, the blood pressure response to exercise was Adequate. Electrocardiogram Resting electro cardiogram shows sinus rhythm nonspecific ST-T changes, with exercise there is almost [address] segment depression noted from the baseline EKG. The EKG portion of the exercise Myoview is positive for ischemia. Cardiac Stress and Resting SPECT Images: Cardiac Stress and Resting SPECT images were obtained using technetium 99m Myoview 32.9 mCi stress and 10.28 mCi at rest. Gated SPECT with analysis of segmental wall motion and calculation of the ejection fraction also done. Cardiac stress and resting SPECT images show uniform myocardial activity without segmental perfusion abnormality, computer derived ejection fraction is over 65% with no regional wall motion abnormality, right ventricle is normal size and contractility. Conclusion: 1. The EKG portion of the exercise Myoview is positive for ischemia, patient has good exercise capacity achieved 10.1 mets of workload on treadmill, the blood pressure response to exercise was adequate, there was no exercise-induced chest discomfort. 2. No scintigraphic evidence of reversible ischemia seen at this level of exercise, computer derived ejection fraction is over 65% with no regional wall motion abnormality, right ventricle is normal size and contractility. Electronically signed by : Miguel Lepe, 01/03/2019 20:40:27
--- NOTE | 2019-01-03 10:20 | HMH.ITSHM ---
Current Home Medications as stated by this patient Alex Abbott JR or customer assistance representative. [] carvedilol farxiga amlodipine brilinta atorvastatin metformin asa sertraline
== END ==
PROVIDERS: PCP Internal Medicine Adolescent Medicine; Visit Provider Nurse Practitioner Family
DX: E78.5 Hyperlipidemia, unspecified (principal); I10 Essential (primary) hypertension; I20.9 Angina pectoris, unspecified; I25.10 Atherosclerotic heart disease of native coronary artery without angina pectoris
CPT/HCPCS: 78452; 93017; A9502

== ENCOUNTER → 2019-05-10 06:45 | Outpatient (CLI) | payer OTHER, SELFPAY ==
--- NOTE | 2019-05-10 | CA_ITS ---
APPROVED REPORT Exam: Pharmacologic Technologist: Meg Gan, Ht: 6 ft 0 in Wt: 224 lbs BSA: 2.24 m2 HR: 72 bpm BP: 139/70 mmHg Rhythm: NSR,ST-T ABNORMALITIES INFERIORLY AND LATERALLY. Medical History Medical History: CAD s/p stent, HTN, Hyperlipidemia Medications: Amlodipine,,,,, Omeprazole,,,,, Asa,,,,, Asa,,,,, Metformin,,,,, Atorvastatin,,,,, Carvedilol,,,,, Sertraline,,,,, DulaGLUTIDE,,,,, DApagliflozin,,,,, TricAGRELOR,,,,, Allergies: ATENENOLOL Cardiac Risk Factors: HTN, Hyperlipidemia, FHX of CAD Stress Test Details Test: Ismael HR Resting HR: 82 bpm Max Heart Rate (APMHR): 163 bpm Max HR Achieved: 140 bpm Target HR (85% APMHR): 138 bpm % of APMHR: 85 Recovery HR: 117 bpm BP Resting BP: 139.0/70.0 mmHg Max BP: 175.0/70.0 mmHg Recovery BP: 152.0/68.0 mmHg ECG Resting ECG: NSR, ST-T ABNORMALITIES INFERIORLY AND LATERALLY. Clinical Exercise duration: 08:45 min Highest Stage Achieved: Exercise capacity: 10.1 METs Stress ECG Conclusion EXERCISED 8:45 ON ISMAEL PROTOCOL WITH MAX HEART RATE 140 BPM WHICH IS 86% OF PM FOR AGE. MAX BP 175/70. METS = 10.1. TEST STOPPED DUE TO SOA AND FATIGUE. NO CHEST PAIN. RARE PAC. 1-1.5MM HORIZONTAL ST DEPRESSION LATERALLY AND EXAGGERATION OF BASELINE T WAVE ABNORMALITIES INFERIORLY. EKG CHANGES POSITIVE FOR ISCHEMIA BUT WITH DECREASED SPECIFICITY DUE TO BASELINE ABNORMALITIES. MYOVIEW IMAGES REPORTED SEPARATELY. Test Summary . Sitting . . . . . . . . Cardiolite injected . Stop exercise at 08:45 . . . . . . Electronically signed by : Miguel Lepe, 05/11/2019 15:32:27
--- NOTE | 2019-05-10 06:45 | NM_ITS ---
APPROVED REPORT Exam: Nuclear Stress Test Indication: C.P.,HYPERLIPIDEMIA, HTN, CAD, 5 STINTS, H/O PA., FM GRACIE C.P. Patient Location: Outpatient Stress Tech: Janet Malik [place] Tech:Lela Rey, ARRT RT (R)(N)(M) Ht: 6 ft 0 in Wt: 224 lbs HR: 72 bpm BP: 139/70 mmHg BSA: 2.24 m2 History: C.P.,HYPERLIPIDEMIA, HTN, CAD, 5 STINTS, H/O PA., FM HX, C.P. Procedure: Patient exercised on Ismael protocol 8:15 minutes and sec, resting heart rate 72 bpm, resting blood pressure 139/70 mmHg, with exercise maximum heart rate achived was 140 bpm which is Greater than 85 % of the maximum predicted heart rate and blood pressure was 175/70 mmHg. Patient denied any complaint of chest pain. Patient has Adequate exercise capacity, achieved 10.1 METs of workload on treadmill, the blood pressure response to exercise was Normal. Electrocardiogram Sinus rhythm nondisplacement ST-T changes, with exercise there is additional millimeter ST segment depression noted from the baseline EKG. The EKG portion of the exercise Myoview is nondiagnostic due to baseline abnormal EKG. Cardiac Stress and Resting SPECT Images: Cardiac Stress and Resting SPECT images were obtained using technetium 99m Myoview 31.6 mCi stress and 10.16 mCi at rest. Gated SPECT for analysis of segmental wall motion and calculation of the ejection fraction also done. Cardiac stress and resting SPECT images show uniform myocardial activity without segmental perfusion abnormality, computer derived ejection fraction 61% with no regional wall motion abnormality, right ventricle is normal size and contractility. Conclusion: 1. The EKG portion of the exercise Myoview is nondiagnostic due to baseline abnormal EKG. Patient has good exercise capacity achieved 10.1 mets of workload on treadmill, the blood pressure response to exercise was normal. There is no exercise-induced chest discomfort. 2. No scintigraphic evidence of reversible ischemia seen, computer derived ejection fraction is 61% with no regional wall motion abnormality, right ventricle is normal size and contractility. 3. Normal exercise Myoview study. Electronically signed by : Miguel Lepe, 05/11/2019 15:35:18
--- NOTE | 2019-05-10 08:55 | HMH.ITSHM ---
Current Home Medications as stated by this patient Alex Abbott JR or parts counter representative. [] amlodipine brilinta metformin carvedilol alorvastatan sertraline trulicity asa
== END ==
PROVIDERS: PCP Internal Medicine Adolescent Medicine; Visit Provider Nurse Practitioner Family
DX: I20.9 Angina pectoris, unspecified (principal); E78.5 Hyperlipidemia, unspecified; I10 Essential (primary) hypertension; I25.2 Old myocardial infarction; Z95.5 Presence of coronary angioplasty implant and graft
CPT/HCPCS: 78452; 93017; A9502

== ENCOUNTER → 2020-02-21 08:54 | Outpatient (CLI) | payer OTHER, SELFPAY ==
[2020-02-21 09:40] LABS: Basophils # 0.1 K/mm3 (0-0.2); Basophils % 0.7 % (0.1-2.0); Eosinophils # 0.1 K/mm3 (0.0-0.4); Eosinophils % 0.7 % (0.1-12.0); Hematocrit 46.9 % (42.0-52.0); Hemoglobin 15.9 g/dL (14.1-18.0); Lymphocytes # 2.2 K/mm3 (0.7-4.5); Lymphocytes % 26.8 % (10-50); Mean Corpuscular HGB Conc 33.9 g/dL (31.8-35.4); Mean Corpuscular Hemoglobin 30.4 pg (27.0-31.2); Mean Corpuscular Volume 89.9 fl (80-94); Mean Platelet Volume 10.4 fl (7.4-10.4); Monocytes # 0.6 K/mm3 (0.1-1.0); Monocytes % 7.6 % (1.7-9.3); Neutrophils # 5.3 K/mm3 (1.8-7.8); Neutrophils % 64.2 % (37.0-80.0); Platelet Count 256 K/mm3 (142-424); Red Blood Count 5.21 M/mm3 (4.60-6.20); Red Cell Distribution Width 14.2 % (11.5-17.5); White Blood Count 8.3 K/mm3 (4.8-10.8)
[2020-02-21 10:13] LABS: Chloride 105 mmol/L (98-107); Potassium 4.4 mmoL/L (3.5-5.1); Sodium 139 mmol/L (136-145)
[2020-02-21 10:16] LABS: Alanine Aminotransferase 35 U/L (12-78); Albumin Level 4.4 g/dl (3.5-5.0); Albumin/Globulin Ratio 1.5 (1.1-1.8); Alkaline Phosphatase 124 U/L (38-126); Anion Gap 13.4 mEq/L (5-15); Aspartate Amino Transferase 24 U/L (17-59); Bilirubin,Total 0.7 mg/dl (0.2-1.3); Blood Urea Nitrogen 28 mg/dl (9-20); Carbon Dioxide 25 mmol/L (22.0-30.0); Cholesterol 123 mg/dl (140-200); Estimated Glomerular Filt Rate 87 ml/min (>60); GFR (African American) 105 ML/MIN (>60); Total Protein,Serum 7.4 g/dl (6.3-8.2); Triglycerides 159 mg/dl (30-150); VLDL Cholesterol 32 mg/dL (0-40)
[2020-02-21 10:17] LABS: Calcium 9.7 mg/dl (8.4-10.2); Chol/HDL Ratio 2.7 (1-3.5); Glucose 264 mg/dl (74-100); HDL Cholesterol 46 mg/dl (40-60)
[2020-02-21 10:28] LABS: Direct LDL Cholesterol 58.71 mg/dL (100-129)
[2020-02-21 11:44] LABS: Hemoglobin A1C 7.8 % (4.0-6.0)
== END ==
PROVIDERS: Visit Provider Nurse Practitioner Family
DX: I10 Essential (primary) hypertension (principal); E78.2 Mixed hyperlipidemia; E11.9 Type 2 diabetes mellitus without complications; Z79.84 Long term (current) use of oral hypoglycemic drugs
CPT/HCPCS: 36415; 80053; 80061; 83036; 85025

== ENCOUNTER → 2020-12-20 09:30 | Outpatient (CLI) | payer OTHER, SELFPAY ==
[2020-12-20 09:59] LABS: Hemoglobin A1C 8.9 % (4.0-6.0)
[2020-12-20 10:06] LABS: Basophils # 0.1 K/mm3 (0-0.2); Eosinophils # 0.1 K/mm3 (0.0-0.4); Eosinophils % 0.9 % (0.1-12.0); Hematocrit 47.3 % (42.0-52.0); Hemoglobin 15.4 g/dL (14.1-18.0); Lymphocytes # 2.4 K/mm3 (0.7-4.5); Lymphocytes % 28.7 % (10-50); Mean Corpuscular HGB Conc 32.6 g/dL (31.8-35.4); Mean Corpuscular Hemoglobin 29.7 pg (27.0-31.2); Mean Corpuscular Volume 91.2 fl (80-94); Mean Platelet Volume 8.6 fl (7.4-10.4); Monocytes # 0.6 K/mm3 (0.1-1.0); Monocytes % 6.7 % (1.7-9.3); Neutrophils # 5.1 K/mm3 (1.8-7.8); Neutrophils % 62.7 % (37.0-80.0); Platelet Count 275 K/mm3 (142-424); Red Blood Count 5.19 M/mm3 (4.60-6.20); Red Cell Distribution Width 13.3 % (11.5-17.5); White Blood Count 8.2 K/mm3 (4.8-10.8)
[2020-12-20 10:26] LABS: Coronavirus 19 IgG Antibody Negative (Negative); Coronavirus 19 IgM Antibody Negative (Negative)
[2020-12-20 10:34] LABS: Chloride 104 mmol/L (98-107); Sodium 138 mmol/L (136-145)
[2020-12-20 10:35] LABS: Potassium 4.5 mmoL/L (3.5-5.1)
[2020-12-20 10:38] LABS: Alanine Aminotransferase 33 U/L (12-78); Albumin Level 4.4 g/dl (3.5-5.0); Albumin/Globulin Ratio 1.5 (1.1-1.8); Alkaline Phosphatase 113 U/L (38-126); Anion Gap 14.5 mEq/L (5-15); Aspartate Amino Transferase 27 U/L (17-59); Bilirubin,Total 0.7 mg/dl (0.2-1.3); Blood Urea Nitrogen 22 mg/dl (9-20); Carbon Dioxide 24 mmol/L (22.0-30.0); Cholesterol 132 mg/dl (140-200); Estimated Glomerular Filt Rate 87 ml/min (>60); GFR (African American) 105 ML/MIN (>60); Globulin 2.9 g/dL (1.3-3.2); Glucose 259 mg/dl (74-100); HDL Cholesterol 44 mg/dl (40-60); Total Protein,Serum 7.3 g/dl (6.3-8.2); Triglycerides 156 mg/dl (30-150); VLDL Cholesterol 31 mg/dL (0-40)
[2020-12-20 10:49] LABS: Direct LDL Cholesterol 61.52 mg/dL (100-129)
== END ==
PROVIDERS: Visit Provider Internal Medicine Adolescent Medicine
DX: E11.9 Type 2 diabetes mellitus without complications (principal); E78.2 Mixed hyperlipidemia; Z01.84 Encounter for antibody response examination; Z79.84 Long term (current) use of oral hypoglycemic drugs
CPT/HCPCS: 36415; 80053; 80061; 83036; 85025; 86328

== ENCOUNTER → 2021-05-20 06:56 | Outpatient (CLI) | payer OTHER, SELFPAY ==
--- NOTE | 2021-05-20 | CA_ITS ---
APPROVED REPORT Exam: Pharmacologic Technologist: Kasey Bruner, Ht: 6 ft 0 in Wt: 244 lbs BSA: 2.32 m2 HR: 77 bpm BP: 127/73 mmHg Rhythm: NSR,ST-T ABNS INFERIORLY, T WAVE ABN IN V6, SLOW R WAVW PROGRESSION Medical History Medical History: HTN, Hyperlipidemia, Diabetes Medications: Amlodipine,,,,, Omeprazole,,,,, Isosorbide,,,,, Aspirin,,,,, Metformin,,,,, Atorvastatin,,,,, Carvedilol,,,,, Farxiga,,,,, Ranolazine,,,,, BRILenta,,,,, DulaGLUTIDE,,,,, Sertaline,,,,, Allergies: ATENOLOL Cardiac Risk Factors: HTN, Hyperlipidemia, Diabetes Stress Test Details Test: LEXISCAN HR Resting HR: 77 bpm Max Heart Rate (APMHR): 161.238763 bpm Max HR Achieved: 108 bpm Target HR (85% APMHR): 136.398964 bpm % of APMHR: 67.08 Recovery HR: 83 bpm BP Resting BP: 127/73 mmHg Max BP: 168/79 mmHg Recovery BP: 128.0/72.0 mmHg ECG Resting ECG: NSR,ST-T ABNS INFERIORLY, T WAVE ABN IN V6, SLOW R WAVW PROGRESSION Clinical Exercise duration: 04:10 min Highest Stage Achieved: Stress ECG Conclusion PT HAD SOA, HEAD DISCOMFORT, NO CP. EXAGGERATION OF BASELINE ABNS. NON-DIAGNOSTIC LEXISCAN STRESS. MYOVIEW IMAGES REPORTED SEPARATELY. Test Summary REST 03:39 . . 77 . 127/ 73 . . Stage 1 01:00 . . 102 . . . . Stage 2 01:00 . . 103 . 168/ 79 . . Stage 3 01:00 . . 95 . 154/ 76 . . Stage 4 01:00 . . 90 . 144/ 72 . . Stage 4 01:10 . . 92 . 144/ 72 . Stop exercise at 04:10 RECOVERY 01:00 . . 91 . . . . RECOVERY 02:00 . . 87 . 147/ 72 . . RECOVERY 03:00 . . 84 . 128/ 72 . . RECOVERY 03:30 . . 85 . 128/ 72 . . Electronically signed by : Miguel Lepe MD 05/21/2021 11:31:32
--- NOTE | 2021-05-20 07:04 | NM_ITS ---
APPROVED REPORT Exam: Nuclear Stress Test Indication: Chest pain, HTN, DM, High cholesterol, CAD Patient Location: Outpatient Stress Tech: Kasey Bruner [place] Tech:Anna Allen, ARRT, RT (R)(N) Ht: 6 ft 0 in Wt: 240 lbs HR: 77 bpm BP: 127/73 mmHg BSA: 2.30 m2 History: Chest pain, HTN, DM, High cholesterol, CAD Procedure: Patient received a 0.4 mg of intravenous Lexiscan, resting heart rate 77 bpm, resting blood pressure 127/73 mmHg, with Lexiscan maximum heart rate achived was 108 bpm which is Less than 85 % of the maximum predicted heart rate and blood pressure was 168/79 mmHg. With Lexiscan, patient denied any complaint of chest pain. Electrocardiogram Resting electrocardiogram shows sinus rhythm, with Lexiscan there is less than 1.[address] segment depression noted from the baseline EKG. The EKG portion of the Lexiscan is nondiagnostic. Cardiac Stress and Resting SPECT Images: Cardiac Stress and Resting SPECT images were obtained using technetium 99m Myoview 31.4 mCi stress and 10.29 mCi at rest. Gated SPECT for analysis of segmental wall motion and calculation of the ejection fraction also done. Cardiac stress and resting SPECT images show uniform myocardial activity without segmental perfusion abnormality, computer derived ejection fraction is 61% with no regional wall motion abnormality, right ventricle is normal size and contractility. Conclusion: 1. The EKG portion of the Lexiscan is nondiagnostic. 2. No scintigraphic evidence of reversible ischemia seen, compared right ejection fraction 61% with no regional wall motion abnormality, right ventricle is normal size and contractility. 3. Normal Lexiscan Myoview study. Electronically signed by : Miguel Lepe MD 05/21/2021 17:32:55
--- NOTE | 2021-05-20 08:50 | HMH.ITSHM ---
Current Home Medications as stated by this patient Alex Abbott JR or safety representative. []TICAGRELOR RANOLAZINE OMEPRAZOLE METFORMIN ISOSORBIDE DULAGLUTIDE DAPAGLIFLOZIN CARVEDILOL ASA AMLODIPINE SERTRALINE ATORVASTATIN
== END ==
LOC: RT 06:58 → RAD 07:06
PROVIDERS: PCP Internal Medicine Adolescent Medicine; Visit Provider Nurse Practitioner Family
DX: I25.10 Atherosclerotic heart disease of native coronary artery without angina pectoris (principal); R07.89 Other chest pain; I10 Essential (primary) hypertension; I21.4 Non-ST elevation (NSTEMI) myocardial infarction; E11.9 Type 2 diabetes mellitus without complications; E78.2 Mixed hyperlipidemia; I25.2 Old myocardial infarction; R94.31 Abnormal electrocardiogram [ECG] [EKG]; Z95.5 Presence of coronary angioplasty implant and graft
CPT/HCPCS: 78452; 93017; A9502; J2785